=== PATIENT | female | born 1965 | race Caucasian/White ===

== ENCOUNTER → 2019-09-17 | Outpatient (CLI) | payer OTHER ==
[~2019-09-17] MED LIST: NO HOME MEDICATIONS
== END ==
LOC: COL.RAD 10:25
DX: R10.84 Generalized abdominal pain (principal)

== ENCOUNTER 2020-02-12 11:57 | Emergency (ER) | payer BC ==
[~2020-02-12] VITALS: Ht 170.2 cm; Wt 71.4 kg
[2020-02-12 12:04] VITALS: BP 130/84; TEMP 98.3
[2020-02-12 13:06] LABS: BASO # 0.1 (0.0-0.2); BASO % 0.9 % (0.0-2.0); EOS # 0.1 (0.0-0.7); EOS % 1.5 % (0-4.0); GRAN # 2.9 (1.4-6.5); GRAN % 54.2 % (42.2-75.2); HEMOGLOBIN 12.9 g/dl (12.5-16.0); LYMPH # 1.7 (1.2-3.4); LYMPH % 30.9 % (20.0-51.0); MEAN CELL VOLUME 94 fl (80.0-100.0); MEAN CORPUSCULAR HEMOGLOBIN 32 pg (27.0-31.0); MEAN CORPUSCULAR HGB CONC 34 g/dl (33.0-37.0); MEAN PLATELET VOLUME 9.9 fl (7.4-10.4); MONO # 0.7 (0.1-0.6); MONO % 12.3 % (1.7-9.3); PLATELET COUNT 252 K/mm3 (130-400); RED BLOOD COUNT 4.05 M/mm3 (4.10-5.30); REDCELL DISTRIBUTION WIDTH-CV 11.8 % (11.5-14.5)
[2020-02-12 13:20] LABS: ALANINE AMINOTRANSFERASE 11 U/L (4-34); ALBUMIN 4.3 gm/dL (3.5-5.0); ALKALINE PHOSPHATASE 65 U/L (50-136); ANION GAP 8 mmol/L (7-16); AST,SGOT 23 U/L (15-37); BILIRUBIN,TOTAL 0.7 mg/dL (0.0-1.0); BLOOD UREA NITROGEN 14 mg/dL (7-17); C-REACTIVE PROTEIN < 0.5 mg/dL (0.0-0.9); CALCIUM 9.5 mg/dL (8.4-10.2); CARBON DIOXIDE 26 mmol/L (22-30); CHLORIDE 99 mmol/L (98-107); GLUCOSE 96 mg/dL (74-106); POTASSIUM 4.3 mmol/L (3.4-5.0); SODIUM 133 mmol/L (137-145); TOTAL PROTEIN 7.7 gm/dL (6.4-8.2)
[2020-02-12 13:29] LABS: TROPONIN-I < 0.012 ng/mL (0.000-0.035)
[2020-02-12] MEDS ORDERED: NAPROXEN 3375 MG/TAB PO ×2 (14:32)
[2020-02-12] MEDS ORDERED: PHENERGAN 25 TA25 MG PO ×2 (14:33)
[2020-02-12 15:11] VITALS: PULSE 76
== END 2020-02-12 15:10 | disposition home or self-care (01) ==
LOC: COL.ER 11:57
PROVIDERS: Emergency Medicine
DX: R10.9 Unspecified abdominal pain (principal); R55 Syncope and collapse; G89.29 Other chronic pain
CPT/HCPCS: J7030

== ENCOUNTER → 2020-09-02 | Outpatient (CLI) | payer BC ==
[~2020-09-02] MED LIST changes: +NAPROXEN 3375 MG/TAB PO; +PHENERGAN 25 TA25 MG PO
== END ==
LOC: MC.RAD 09:09
DX: Z12.31 Encounter for screening mammogram for malignant neoplasm of breast (principal)

== ENCOUNTER → 2024-01-06 | Outpatient (CLI) | payer OTHER ==
[~2024-01-06] MED LIST changes: +CEPHALEXIN500 M1 PO; +NAPROSYN500 MG PO; +PERCOCET 325 MG1 TA2 PO
== END ==
LOC: MC.RAD 13:07
DX: Z12.31 Encounter for screening mammogram for malignant neoplasm of breast (principal)